=== PATIENT | male | born 1970 | race Caucasian/White ===

== ENCOUNTER 2021-07-17 15:15 | Emergency (ER) | payer OTHER ==
[~2021-07-17] VITALS: Ht 182.9 cm; Wt 86.2 kg
[2021-07-17] MEDS ORDERED: ACET-2247 PO (16:53)
[2021-07-17 17:23] VITALS: BP 126/70
[2021-07-18] MEDS ORDERED: LIDO20SO MM (16:24)
[2021-07-18] MEDS ORDERED: MAG-37 PO (16:24)
[2021-07-18] MEDS ORDERED: CLIN-141 PO (16:24)
== END 2021-07-17 17:24 | disposition home or self-care (01) ==
LOC: EDH 15:15
DX: J02.9 Acute pharyngitis, unspecified (principal); Z20.822 Contact with and (suspected) exposure to COVID-19; I10 Essential (primary) hypertension; E78.00 Pure hypercholesterolemia, unspecified; Z88.0 Allergy status to penicillin
CPT/HCPCS: 87635; 87880; 99283; C9803

== ENCOUNTER 2021-07-18 14:17 | Emergency (ER) | payer OTHER ==
[~2021-07-18] VITALS: Ht 182.9 cm; Wt 86.2 kg
[~2021-07-18 14:17] MED LIST: ACET-2247 PO
[2021-07-18] MEDS ORDERED: MAG/ALUM/SIMETH 30 ML UDCUP PO ONE (15:00)
[2021-07-18] MEDS ORDERED: ACETAMINOPHEN WITH CODEINE 1 TAB TAB PO ONE (15:00)
[2021-07-18] MEDS ORDERED: MAG/ALUM/SIMETH 30 ML UDCUP ONE (15:05)
[2021-07-18] MEDS ORDERED: ACETAMINOPHEN WITH CODEINE 1 TAB TAB ONE (15:05)
[2021-07-18 15:13] LABS: BASOPHILS % (AUTO) 0.3 % (0.0-5.0); EOSINOPHILS % (AUTO) 2.1 % (0.0-8.0); HEMATOCRIT 44.4 % (42-54); LYMPHOCYTES % (AUTO) 18.8 % (21.0-51.0); MEAN CORPUSCULAR HEMOGLOBIN 32.5 pg (27.0-33.0); MEAN CORPUSCULAR HGB CONC 34.2 g/dL (32.0-36.0); MEAN CORPUSCULAR VOLUME 95.1 fL (79-99); MONOCYTES % (AUTO) 7.3 % (3.0-13.0); NEUTROPHILS % (AUTO) 71.2 % (40.0-77.0); PLATELET COUNT (AUTO) 157 K/uL (130-400); RED BLOOD CELL COUNT(AUTO) 4.67 MIL/uL (4.50-6.20); WHITE BLOOD COUNT (AUTO) 12.7 K/uL (4.8-10.8)
[2021-07-18 15:21] LABS: CREATININE 1.1 mg/dL (0.5-1.5); POTASSIUM 4.8 mmol/L (3.5-5.1)
[2021-07-18 15:26] LABS: ALBUMIN 3.6 g/dL (3.5-5.0); BILIRUBIN,TOTAL 0.5 mg/dL (0.2-1.0); TOTAL PROTEIN, SERUM 7.2 g/dL (6.0-8.3)
[2021-07-18 15:50] VITALS: BP 139/89
[2021-07-18] MEDS ORDERED: CEFTRIAXONE 1G VIAL ONE (15:53)
[2021-07-18] MEDS ORDERED: AZITHROMYCIN 250 MG TABLET PO ONE ×2 (15:54→16:00)
[2021-07-18] MEDS ORDERED: CEFTRIAXONE 1G VIAL IVP ONE (16:00)
[2021-07-18] MEDS ORDERED: MAG-37 PO (16:24)
[2021-07-18] MEDS ORDERED: CLIN-141 PO (16:24)
[2021-07-18] MEDS ORDERED: LIDO20SO MM (16:24)
[2021-07-21 13:13] LABS: CHLAMYDIA DNA N.A.AMPLIFY Negative (Negative); GC DNA N.A. AMPLIFY Negative (Negative)
== END 2021-07-18 16:39 | disposition home or self-care (01) ==
LOC: EDH 14:17
DX: J36 Peritonsillar abscess (principal); M47.812 Spondylosis without myelopathy or radiculopathy, cervical region; E78.00 Pure hypercholesterolemia, unspecified; I10 Essential (primary) hypertension; I25.10 Atherosclerotic heart disease of native coronary artery without angina pectoris; I25.2 Old myocardial infarction; Z88.0 Allergy status to penicillin; Z95.5 Presence of coronary angioplasty implant and graft
CPT/HCPCS: 36415; 70490; 80053; 85025; 86308; 87486; 87797; 87880; 96374; 99284; J0696

== ENCOUNTER 2021-07-21 04:56 | Emergency (ER) | payer OTHER ==
[~2021-07-21] VITALS: Ht 182.9 cm; Wt 86.2 kg
[~2021-07-21 04:56] MED LIST changes: +CLIN-141 PO; +LIDO20SO MM; +MAG-37 PO
[2021-07-21] MEDS ORDERED: CEFTRIAXONE 1G VIAL IVP ONE (05:30)
[2021-07-21] MEDS ORDERED: MORPHINE 4 MG SYG IVP ONE (05:30)
[2021-07-21] MEDS ORDERED: SOLU-MEDROL 125MG VIAL IVP ONE (05:30)
[2021-07-21] MEDS ORDERED: KETOROLAC 30MG VIAL (30MG/ML) IVP ONE (05:30)
[2021-07-21 05:41] LABS: BASOPHILS % (AUTO) 0.3 % (0.0-5.0); EOSINOPHILS % (AUTO) 2.9 % (0.0-8.0); LYMPHOCYTES % (AUTO) 24.5 % (21.0-51.0); MEAN CORPUSCULAR HGB CONC 34.5 g/dL (32.0-36.0); MEAN CORPUSCULAR VOLUME 92.6 fL (79-99); MONOCYTES % (AUTO) 9.8 % (3.0-13.0); NEUTROPHILS % (AUTO) 62.2 % (40.0-77.0); PLATELET COUNT (AUTO) 152 K/uL (130-400); RED BLOOD CELL COUNT(AUTO) 4.75 MIL/uL (4.50-6.20); RED CELL DISTRIBUTION WIDTH 12.9 % (11.0-15.5); WHITE BLOOD COUNT (AUTO) 10.4 K/uL (4.8-10.8)
[2021-07-21 05:55] LABS: ALBUMIN 3.6 g/dL (3.5-5.0); BILIRUBIN,TOTAL 0.4 mg/dL (0.2-1.0); POTASSIUM 4.2 mmol/L (3.5-5.1); TOTAL PROTEIN, SERUM 7.2 g/dL (6.0-8.3)
[2021-07-21] MEDS ORDERED: METH4TAB3 PO (06:29)
[2021-07-21] MEDS ORDERED: ACET1TAB25 PO (06:29)
[2021-07-21] MEDS ORDERED: AMOX-429 PO (06:29)
[2021-07-21 06:35] VITALS: BP 146/88
== END 2021-07-21 06:43 | disposition home or self-care (01) ==
LOC: EDH 04:56
DX: K12.2 Cellulitis and abscess of mouth (principal); K08.9 Disorder of teeth and supporting structures, unspecified; I25.10 Atherosclerotic heart disease of native coronary artery without angina pectoris; I10 Essential (primary) hypertension; I25.2 Old myocardial infarction; F17.200 Nicotine dependence, unspecified, uncomplicated; Z88.0 Allergy status to penicillin; Z79.1 Long term (current) use of non-steroidal anti-inflammatories (NSAID); Z79.52 Long term (current) use of systemic steroids; Z82.49 Family history of ischemic heart disease and other diseases of the circulatory system; Z95.5 Presence of coronary angioplasty implant and graft
CPT/HCPCS: 36415; 80053; 85025; 96374; 96375; 99284; J0696; J1885; J2270; J2930